=== PATIENT | male | born 1990 | race Asian ===

== ENCOUNTER 2022-04-06 03:11 | Emergency (ER) | payer BC ==
[2022-04-06 04:33] LABS: #Eosinphils 0.2 thou/uL (0.0-0.7); #Lymphocytes 1.8 thou/uL (1.20-3.40); #Monocytes 0.5 thou/uL (0.11-0.59); #Neutrophils 3.6 thou/uL (1.40-6.50); %Basophils 0.7 % (0.0-1.0); %Eosinophils 3.6 % (0.0-10.0); %Lymphocytes 29.5 % (21.0-51.0); %Monocytes 7.6 % (0.0-10.0); %Neutrophils 58.6 % (42.0-75.0); Hemoglobin 14.5 g/dL (14.0-18.0); Mean Corpuscular HGB CONC 32.9 g/dL (32.0-36.0); Mean Platelet Volume 7.8 fL (7.4-10.4); Platelet Count 251 10x3/uL (130-400); RBC Distribution Width 12.4 % (11.5-14.5); Red Blood Cell (RBC) Count 4.83 mill/uL (4.70-6.10); White Blood Cell (WBC) Count 6.1 10x3/uL (4.8-10.8)
[2022-04-06 04:59] LABS: ALT (SGPT) 29 U/L (8-55); AST (SGOT) 24 U/L (5-34); Albumin 4.1 g/dL (3.5-5.0); Alkaline Phosphatase 61 U/L (40-110); Anion Gap 12 mmol/L (10-20); BUN (Urea Nitrogen) 7 mg/dL (8.9-20.6); Bilirubin, Total 0.8 mg/dL (0.2-1.2); Calc. Creatinine Clearance 0 mL/min (70-130); Calcium 8.8 mg/dL (7.8-10.44); Carbon Dioxide 25 mmol/L (22-29); Chloride 106 mmol/L (98-107); Estimated GFR 122; Globulin 2.7 g/dL (2.4-3.5); Glucose 98 mg/dL (70-105); Magnesium 1.8 mg/dL (1.6-2.6); Potassium 5.2 mmol/L (3.5-5.1); Protein, Total 6.8 g/dL (6.0-8.3); Sodium 138 mmol/L (136-145)
[2022-04-06] MEDS ORDERED: Iopamidol-370 76% 500 ML 1 ML ONE (10:09)
== END 2022-04-06 05:28 | disposition home or self-care (01) ==
LOC: ERS 03:11
DX: R55 Syncope and collapse (principal)
CPT/HCPCS: 36415; 71275; 80053; 83735; 84484; 85025; 93005; Q9967